=== PATIENT | female | born 1965 ===

== ENCOUNTER 2018-03-13 14:28 | Emergency (ER) | payer SELFPAY ==
[2018-03-13 14:51] VITALS: BP 135/72
[2018-03-13] MEDS ORDERED: TORADOL IM ONE (16:27)
--- NOTE | 2018-03-13 16:27 | Emergency Department Report ---
ED Lower Extremity HPI - General Chief Complaint: Extremity Injury, Lower Stated Complaint: LEGS/KNEE PAIN Source: patient Mode of arrival: Wheelchair Limitations: No Limitations - History of Present Illness Initial Comments: This is a 52-year-old female who presents with bilateral lower extremity pain and swelling for 5 months that increased over the past 3 weeks. Patient reports pain is unbearable with weightbearing and movement. Patient reports pain is 8 out of 10 on pain scale with aching sensation. Patient was diagnosed with a right arthritis in the left knee and ligament injury to right knee when symptoms originally started 5 months ago by PCP at [facility]. The patient denies past medical history. She reports pain is worse with long periods of sitting and improves with ambulation. She denies warmth, recent injury, numbness or tingling, erythema, and fever. MD Complaint: knee injury (bilateral knees) Onset/Timin -: week(s) Injury: Knee: Right, Left Type of Injury: unknown Place: work Severity: mild Severity scale (0 -10): 8 Improves With: nothing Worsens With: weight bearing, movement Associated Symptoms: swelling, able to partially bear weight, ambulatory. denies: snap/pop sensation, numbness, tingling, unable to bear weight Treatments Prior to Arrival: cold therapy, NSAIDS - Related Data Previous Rx's Medication Instructions Recorded Last Taken Type Naproxen [Naprosyn] 500 mg PO BID #12 tablet 03/13/18 Unknown Rx traMADol [Ultram 50 MG tab] 50 mg PO Q6HR PRN #8 tablet 03/13/18 Unknown Rx Allergies Allergy/AdvReac Type Severity Reaction Status Date / Time No Known Allergies Allergy Verified 03/13/18 14:45 ED Review of Systems ROS: Stated complaint: LEGS/KNEE PAIN Other details as noted in HPI Constitutional: denies: chills, fever Respiratory: denies: cough, shortness of breath, wheezing Cardiovascular: denies: chest pain, palpitations Gastrointestinal: denies: abdominal pain, nausea, diarrhea Musculoskeletal: arthralgia (bilateral knee pain). denies: back pain Skin: denies: rash, lesions Neurological: denies: headache, weakness, paresthesias Psychiatric: denies: anxiety, depression ED Past Medical Hx - Past Medical History Previous Medical History?: No - Surgical History Past Surgical History?: Yes Additional Surgical History: tubal ligation - Social History Smoking Status: Former Smoker Substance Use Type: None - Medications Home Medications: Home Medications Medication Instructions Recorded Confirmed Last Taken Type Naproxen [Naprosyn] 500 mg PO BID #12 tablet 03/13/18 Unknown Rx traMADol [Ultram 50 MG tab] 50 mg PO Q6HR PRN #8 tablet 03/13/18 Unknown Rx ED Physical Exam - General Limitations: No Limitations General appearance: alert, in no apparent distress, obese (morbidly obese) - Respiratory Respiratory exam: Present: normal lung sounds bilaterally. Absent: respiratory distress - Cardiovascular Cardiovascular Exam: Present: regular rate, normal rhythm. Absent: systolic murmur, diastolic murmur, rubs, gallop - GI/Abdominal GI/Abdominal exam: Present: soft, normal bowel sounds - Expanded Lower Extremity Exam Left Knee exam: Present: tenderness (posterior patella), swelling, crepidus, pain w/ pronation/supination, pain/laxity with valgus, pain/laxity with varus. Absent: full ROM (limited active and passive range of motion secondary to pain), abrasion, laceration, ecchymosis, deformity, dislocation, erythema, posterior draw sign, full knee extension Lower Leg exam: Present: swelling. Absent: tenderness, abrasion, laceration, ecchymosis, deformity, crepidus, dislocation, erythema, palpable cord, Nathalie's sign Ankle exam: Present: full ROM, swelling. Absent: tenderness, abrasion, laceration, ecchymosis, deformity, crepidus, dislocation, erythema, anterior draw sign Foot/Toe exam: Present: normal inspection, full ROM Neuro vascular tendon exam: Present: no vascular compromise Gait: Positive: observed and limited by pain Right Hip exam: Present: normal inspection, full ROM Upper Leg exam: Present: normal inspection, full ROM Knee exam: Present: tenderness (posterior Patella), swelling, crepidus, effusion , pain w/ pronation/supination. Absent: full ROM (limits range of motion secondary to swelling and pain), abrasion, laceration, ecchymosis, deformity, dislocation, erythema, posterior draw sign, full knee extension Lower Leg exam: Present: normal inspection, full ROM Ankle exam: Present: full ROM, swelling. Absent: abrasion, laceration, ecchymosis, deformity, crepidus, erythema, anterior draw sign Foot/Toe exam: Present: full ROM, swelling. Absent: tenderness, abrasion, laceration, ecchymosis, deformity, crepidus, dislocation, erythema, amputation, puncture wound, foreign body, calcaneal tenderness, tenderness at base of 5th metatarsal, nail avulsion, subungual hematoma Neuro vascular tendon exam: Present: no vascular compromise Gait: Positive: observed and limited by pain - Neurological Exam Neurological exam: Present: alert, oriented X3 - Psychiatric Psychiatric exam: Present: normal affect, normal mood - Skin Skin exam: Present: warm, dry, intact, normal color. Absent: rash ED Course Vital Signs 03/13/18 14:45 Temperature 98.8 F Pulse Rate 75 Respiratory 18 Rate Blood Pressure 135/72 O2 Sat by Pulse 98 Oximetry ED Lower Extremity MDM - Lab Data Result diagrams: 03/13/18 16:34 Lab Results 03/13/18 03/13/18 Range/Units 16:34 16:34 D-Dimer 195.23 (0-234) ng/mlDDU Sodium 137 (137-145) mmol/L Potassium 4.3 (3.6-5.0) mmol/L Chloride 99.4 (98-107) mmol/L Carbon Dioxide 27 (22-30) mmol/L Anion Gap 15 mmol/L BUN 6 L (7-17) mg/dL Creatinine 0.5 L (0.7-1.2) mg/dL Estimated GFR > 60 ml/min BUN/Creatinine Ratio 12 % Glucose 92 (65-100) mg/dL Calcium 9.1 (8.4-10.2) mg/dL Total Bilirubin < 0.20 (0.1-1.2) mg/dL AST 9 (5-40) units/L ALT 10 (7-56) units/L Alkaline Phosphatase 102 (35-129) units/L NT-Pro-B Natriuret Pep 16.35 (0-900) pg/mL Total Protein 7.9 (6.3-8.2) g/dL Albumin 4.0 (3.9-5) g/dL Albumin/Globulin Ratio 1.0 % - Radiology Data Radiology results: report reviewed, image reviewed FINAL REPORT EXAM: XR KNEE BILAT 1-2V HISTORY: bilateral knee pain with swelling TECHNIQUE: Frontal and lateral views both knees Comparison: None FINDINGS: Right knee: There is no evidence of fracture or subluxation. There is evidence of degenerative change of the medial compartment of the tibiofemoral joint with joint space loss and osteophyte formation. The patella appears to be high-riding. There is a possible effusion in the suprapatellar pouch. Left knee: There is no evidence of fracture or subluxation. There is evidence of degenerative change of the tibiofemoral joint with joint space loss. The patella appears to be high-riding. There is a possible effusion in the suprapatellar pouch. IMPRESSION: 1. No evidence of fracture or subluxation of either knee. 2. Appearance of degenerative change of the tibiofemoral joints of both knees. 3. Possible effusion in the suprapatellar pouch of both knees. - Medical Decision Making Patient was examined by me. Vitals are normal and patient is in no acute distress. Obtained labs to rule out congestive heart failure and DVT. Labs within normal limits. X-rays obtained of bilateral knees and dictated by radiologis. 1. No evidence of fracture or subluxation of either knee. 2. Appearance of degenerative change of the tibiofemoral joints of both knees. 3. Possible effusion in the suprapatellar pouch of both knees. Patient informed of results. Referral to orthopedic surgery. Start tramadol and naproxen for pain. Patient discharged home in stable condition. Follow up with PCP in 2-3 days. Critical care attestation.: If time is entered above; I have spent that time in minutes in the direct care of this critically ill patient, excluding procedure time. ED Disposition Clinical Impression: Effusion of both knee joints Bilateral knee pain Qualifiers: Chronicity: acute Qualified Code(s): M25.561 - Pain in right knee DJD (degenerative joint disease) of knee Qualifiers: Osteoarthritis type: primary Laterality: bilateral Qualified Code(s): M17.0 - Bilateral primary osteoarthritis of knee Disposition: - TO HOME OR SELFCARE Is pt being admited?: No Does the pt Need Aspirin: No Condition: Stable Instructions: Osteoarthritis (ED), Knee Effusion (ED) Additional Instructions: Rest Use ice or heat on affected area for 20 minutes and off for 2 hours. Take pain medication as needed for pain. Follow up with Primary Care Provider in 2-3 days. Prescriptions: Naproxen [Naprosyn] 500 mg PO BID #12 tablet traMADol [Ultram 50 MG tab] 50 mg PO Q6HR PRN #8 tablet PRN Reason: Pain Referrals: KENNY SINGH MD [Staff Physician] - 3-5 Days [facility] [Provider Group] - 3-[address] [facility] [Outside] - 3-5 Days [facility] [Outside] - 3-5 Days Time of Disposition: 17:40 Print Language: JORDANIAN
--- NOTE | 2018-03-13 17:09 | XRay Report ---
FINAL REPORT EXAM: XR KNEE BILAT 1-2V HISTORY: bilateral knee pain with swelling TECHNIQUE: Frontal and lateral views both knees Comparison: None FINDINGS: Right knee: There is no evidence of fracture or subluxation. There is evidence of degenerative change of the medial compartment of the tibiofemoral joint with joint space loss and osteophyte formation. The patella appears to be high-riding. There is a possible effusion in the suprapatellar pouch. Left knee: There is no evidence of fracture or subluxation. There is evidence of degenerative change of the tibiofemoral joint with joint space loss. The patella appears to be high-riding. There is a possible effusion in the suprapatellar pouch. IMPRESSION: 1. No evidence of fracture or subluxation of either knee. 2. Appearance of degenerative change of the tibiofemoral joints of both knees. 3. Possible effusion in the suprapatellar pouch of both knees.
[2018-03-13 17:15] LABS: Alanine Aminotransferase 10 units/L (7-56); BUN/Creatinine Ratio 12; Blood Urea Nitrogen 6 mg/dL (7-17); Calcium 9.1 mg/dL (8.4-10.2); Hemolysis Index 2
== END 2018-03-13 17:50 | disposition home or self-care (01) ==
LOC: ED 14:28
DX: M17.0 Bilateral primary osteoarthritis of knee (principal); Z98.51 Tubal ligation status; Z87.891 Personal history of nicotine dependence
CPT/HCPCS: 36415; 80053; 83880; 85379; 99283